=== PATIENT | female | born 1935 | race Caucasian/White ===

== ENCOUNTER 2022-07-03 03:28 | Inpatient (IN) | payer MEDICARE ==
[2022-07-03] MEDS ORDERED: Magnesium 2 GM/50 ML BAG (IN WATER) ONE (04:06)
[2022-07-03] MEDS ORDERED: Furosemide 40 MG/4 ML VIAL ONE (04:06)
[2022-07-03] MEDS ORDERED: Ondansetron ODT 4 MG TAB PO PRN (04:35)
[2022-07-03] MEDS ORDERED: Dextrose 50% Abboject 50 ML SYRINGE SLOW IVP PRN (04:35)
[2022-07-03] MEDS ORDERED: Ondansetron PF 4 MG/2 ML Vial IVP PRN (04:35)
[2022-07-03] MEDS ORDERED: Acetaminophen 325 MG TAB PO PRN (04:35)
[2022-07-03] MEDS ORDERED: Dextrose 5% in Water 1,000 ML IV PRN (04:35)
[2022-07-03] MEDS ORDERED: HumaLOG 300 UNITS/3 ML VIAL SC PRN (04:35)
[2022-07-03] MEDS ORDERED: Acetaminophen 650 MG Suppository PR PRN (04:35)
[2022-07-03 07:34] LABS: Troponin I Less than 0.010 ng/mL (< 0.028)
[2022-07-03] MEDS: Azithromycin 500 MG in Sodium Chloride 0.9% 250 ML 250 ML IVPB SCH (10:27)
[2022-07-03] MEDS: methylPREDNISolone Sod Succ 40 MG VIAL IVP SCH (10:28)
[2022-07-03] MEDS ORDERED: NIFEdipine XL 60 MG TAB PO SCH (13:30)
[2022-07-03] MEDS: HYDROcodone/Acetaminophen 10/325 mg Tablet PO PRN (15:30)
[2022-07-03] MEDS: Ferrous Sulfate 325 MG TAB PO SCH (17:22)
[2022-07-03] MEDS: HumaLOG 300 UNITS/3 ML VIAL SC PRN (17:22)
[2022-07-03] MEDS: Ezetimibe 10 MG TAB PO SCH (20:28)
[2022-07-03] MEDS: Aspirin Chewable 81 MG TAB PO SCH (20:28)
[2022-07-03] MEDS: Atorvastatin Calcium 20 MG TAB PO SCH (20:28)
[2022-07-03] MEDS: Docusate 100 MG CAP PO SCH (20:29)
[2022-07-04] MEDS: HYDROcodone/Acetaminophen 10/325 mg Tablet PO PRN ×3 (00:10→17:37)
[2022-07-04] MEDS: tiZANidine HCl 4 MG TAB PO SCH ×2 (00:16→21:36)
[2022-07-04 02:47] VITALS: BMI 24.1
[2022-07-04 06:11] LABS: Anion Gap 10 mmol/L (10-20); BUN (Urea Nitrogen) 29 mg/dL (9.8-20.1); Calc. Creatinine Clearance 41 mL/min (70-130); Calcium 8.7 mg/dL (7.8-10.44); Carbon Dioxide 28 mmol/L (23-31); Chloride 106 mmol/L (98-107); Estimated GFR 64; Glucose 105 mg/dL (83-110); Potassium 3.5 mmol/L (3.5-5.1); Sodium 140 mmol/L (136-145)
[2022-07-04] MEDS: Azithromycin 500 MG in Sodium Chloride 0.9% 250 ML 250 ML IVPB SCH (06:23)
[2022-07-04] MEDS: Levothyroxine Sodium 112 MCG TAB PO SCH (06:25)
[2022-07-04 06:57] LABS: Mean Corpuscular HGB CONC 31.4 g/dL (32.0-36.0); Mean Corpuscular Hemoglobin 31.8 pg (27.0-31.0); Mean Platelet Volume 6.9 fL (7.4-10.4); Platelet Count 202 10x3/uL (130-400); RBC Distribution Width 12.1 % (11.5-14.5); Red Blood Cell (RBC) Count 3.47 mill/uL (4.20-5.40)
[2022-07-04] MEDS: Clopidogrel Bisulfate 75 MG TAB PO SCH (08:19)
[2022-07-04] MEDS: NIFEdipine XL 60 MG TAB PO SCH (08:19)
[2022-07-04] MEDS: Ferrous Sulfate 325 MG TAB PO SCH ×2 (08:19→17:36)
[2022-07-04] MEDS: methylPREDNISolone Sod Succ 40 MG VIAL IVP SCH (08:21)
[2022-07-04] MEDS ORDERED: Enoxaparin Sodium 30 MG/0.3 ML SYRINGE SC SCH (09:00)
[2022-07-04] MEDS ORDERED: Non-Formulary Item 1 EACH (Levothyroxine Sodium [Levothyroxine] 100 MCG Capsule) PO SCH (09:00)
[2022-07-04 09:51] LABS: Band 2 % (5-11); Hypochromia SLIGHT = 6-15 cells (100X) (0-5/hpf); Lymphocytes 38 % (21-51); MDiff Complete? YES; Macrocytosis SLIGHT = 6-15 cells (100X) (0-5/hpf); Monocytes 13 % (0-10); Neutrophil 46 % (42-75); Ovalocytes SLIGHT = 2-5 cells (100X) (0-1/hpf); Platelet Morphology Comment Appears Adequate; Polychromasia SLIGHT = 2-3 cells (100X) (0-2/hpf); Reactive Lymphocytes 1 % (0-10)
[2022-07-04] MEDS: HumaLOG 300 UNITS/3 ML VIAL SC PRN (17:36)
[2022-07-04 17:59] LABS: Sodium, Urine 50 mmol/L (Not Available); Urea Nitrogen, Random Urine 1035 mg/dl
[2022-07-04] MEDS: Aspirin Chewable 81 MG TAB PO SCH (21:33)
[2022-07-04] MEDS: Atorvastatin Calcium 20 MG TAB PO SCH (21:33)
[2022-07-04] MEDS: Ezetimibe 10 MG TAB PO SCH (21:33)
[2022-07-04] MEDS: Docusate 100 MG CAP PO SCH (21:33)
[2022-07-05] MEDS: HYDROcodone/Acetaminophen 10/325 mg Tablet PO PRN ×2 (01:58→17:22)
[2022-07-05 05:14] LABS: ALT (SGPT) 9 U/L (8-55); AST (SGOT) 24 U/L (5-34); Albumin 3.6 g/dL (3.4-4.8); Alkaline Phosphatase 57 U/L (40-110); Anion Gap 12 mmol/L (10-20); BUN (Urea Nitrogen) 28 mg/dL (9.8-20.1); Bilirubin, Total 0.2 mg/dL (0.2-1.2); Calc. Creatinine Clearance 42 mL/min (70-130); Calcium 8.8 mg/dL (7.8-10.44); Carbon Dioxide 25 mmol/L (23-31); Chloride 106 mmol/L (98-107); Estimated GFR 65; Globulin 3.6 g/dL (2.4-3.5); Glucose 97 mg/dL (83-110); Magnesium 1.9 mg/dL (1.6-2.6); Phosphorus 3.2 mg/dL (2.3-4.7); Potassium 3.7 mmol/L (3.5-5.1); Protein, Total 7.2 g/dL (5.8-8.1); Sodium 139 mmol/L (136-145)
[2022-07-05 05:19] LABS: Band 3 % (5-11); Hemoglobin 10.9 g/dL (12.0-16.0); Lymphocytes 39 % (21-51); MDiff Complete? YES; Mean Corpuscular HGB CONC 32.8 g/dL (32.0-36.0); Mean Corpuscular Hemoglobin 32.6 pg (27.0-31.0); Mean Corpuscular Volume 99.4 fl (78.0-98.0); Mean Platelet Volume 6.7 fL (7.4-10.4); Monocytes 15 % (0-10); Neutrophil 43 % (42-75); Platelet Count 200 10x3/uL (130-400); RBC Distribution Width 12.2 % (11.5-14.5); Red Blood Cell (RBC) Count 3.34 mill/uL (4.20-5.40); White Blood Cell (WBC) Count 4.7 10x3/uL (4.8-10.8)
[2022-07-05] MEDS ORDERED: Levothyroxine Sodium 100 MCG TAB PO SCH (06:00)
[2022-07-05] MEDS: Azithromycin 500 MG in Sodium Chloride 0.9% 250 ML 250 ML IVPB SCH (06:14)
[2022-07-05] MEDS: Cyanocobalamin (Vitamin B-12) 1,000 MCG TAB PO SCH (09:11)
[2022-07-05] MEDS: Clopidogrel Bisulfate 75 MG TAB PO SCH (09:11)
[2022-07-05] MEDS: methylPREDNISolone Sod Succ 40 MG VIAL IVP SCH (09:11)
[2022-07-05] MEDS: Folic Acid 1 MG TAB PO SCH (09:11)
[2022-07-05] MEDS: NIFEdipine XL 60 MG TAB PO SCH (09:11)
[2022-07-05] MEDS: Enoxaparin Sodium 40 MG/0.4 ML SYRINGE SC SCH (09:11)
[2022-07-05] MEDS: Ferrous Sulfate 325 MG TAB PO SCH ×2 (09:11→17:22)
[2022-07-05] MEDS: HumaLOG 300 UNITS/3 ML VIAL SC PRN (17:43)
[2022-07-05] MEDS: Aspirin Chewable 81 MG TAB PO SCH (21:01)
[2022-07-05] MEDS: Atorvastatin Calcium 20 MG TAB PO SCH (21:01)
[2022-07-05] MEDS: Ezetimibe 10 MG TAB PO SCH (21:01)
[2022-07-05] MEDS: tiZANidine HCl 4 MG TAB PO SCH (21:02)
[2022-07-05] MEDS: Docusate 100 MG CAP PO SCH (21:02)
[2022-07-06] MEDS: HYDROcodone/Acetaminophen 10/325 mg Tablet PO PRN ×3 (01:52→19:57)
[2022-07-06] MEDS ORDERED: Benzonatate 100 MG CAP PO PRN (02:08)
[2022-07-06] MEDS: GUAIFENESIN SF SOLN 200 MG/10 ML UDCUP PO PRN ×3 (02:17→11:49)
[2022-07-06 05:05] LABS: ALT (SGPT) 10 U/L (8-55); AST (SGOT) 25 U/L (5-34); Albumin 3.5 g/dL (3.4-4.8); Alkaline Phosphatase 57 U/L (40-110); Anion Gap 10 mmol/L (10-20); BUN (Urea Nitrogen) 26 mg/dL (9.8-20.1); Bilirubin, Total 0.3 mg/dL (0.2-1.2); Calc. Creatinine Clearance 43 mL/min (70-130); Carbon Dioxide 27 mmol/L (23-31); Chloride 104 mmol/L (98-107); Estimated GFR 66; Globulin 3.5 g/dL (2.4-3.5); Glucose 98 mg/dL (83-110); Sodium 137 mmol/L (136-145)
[2022-07-06] MEDS: Azithromycin 500 MG in Sodium Chloride 0.9% 250 ML 250 ML IVPB SCH (05:40)
[2022-07-06] MEDS: Levothyroxine Sodium 112 MCG TAB PO SCH (05:40)
[2022-07-06 05:52] LABS: Band 2 % (5-11); Hemoglobin 10.8 g/dL (12.0-16.0); Hypochromia SLIGHT = 6-15 cells (100X) (0-5/hpf); Lymphocytes 50 % (21-51); MDiff Complete? YES; Mean Corpuscular Hemoglobin 32.5 pg (27.0-31.0); Mean Corpuscular Volume 98.5 fl (78.0-98.0); Mean Platelet Volume 6.9 fL (7.4-10.4); Monocytes 8 % (0-10); Neutrophil 35 % (42-75); Platelet Count 190 10x3/uL (130-400); Platelet Morphology Comment Appears Adequate; RBC Distribution Width 11.9 % (11.5-14.5); Reactive Lymphocytes 5 % (0-10); Red Blood Cell (RBC) Count 3.33 mill/uL (4.20-5.40); White Blood Cell (WBC) Count 3.9 10x3/uL (4.8-10.8)
[2022-07-06] MEDS: Enoxaparin Sodium 40 MG/0.4 ML SYRINGE SC SCH (09:25)
[2022-07-06] MEDS: NIFEdipine XL 60 MG TAB PO SCH (09:25)
[2022-07-06] MEDS: Cyanocobalamin (Vitamin B-12) 1,000 MCG TAB PO SCH (09:25)
[2022-07-06] MEDS: Clopidogrel Bisulfate 75 MG TAB PO SCH (09:25)
[2022-07-06] MEDS: methylPREDNISolone Sod Succ 40 MG VIAL IVP SCH (09:25)
[2022-07-06] MEDS: Folic Acid 1 MG TAB PO SCH (09:25)
[2022-07-06] MEDS: Ferrous Sulfate 325 MG TAB PO SCH ×2 (09:25→15:48)
[2022-07-06] MEDS ORDERED: Calcium Carbonate 600 MG + Vit D TAB PO SCH (16:45)
[2022-07-06] MEDS: HumaLOG 300 UNITS/3 ML VIAL SC PRN (16:59)
[2022-07-06] MEDS: metFORMIN 500 MG TAB PO SCH (16:59)
[2022-07-06] MEDS: tiZANidine HCl 4 MG TAB PO SCH ×2 (21:23→21:28)
[2022-07-06] MEDS: Aspirin Chewable 81 MG TAB PO SCH (21:24)
[2022-07-06] MEDS: Ezetimibe 10 MG TAB PO SCH (21:24)
[2022-07-06] MEDS: Atorvastatin Calcium 20 MG TAB PO SCH (21:24)
[2022-07-06] MEDS: Docusate 100 MG CAP PO SCH (21:27)
[2022-07-07] MEDS: HYDROcodone/Acetaminophen 10/325 mg Tablet PO PRN ×3 (04:41→21:11)
[2022-07-07] MEDS: Levothyroxine Sodium 112 MCG TAB PO SCH (05:43)
[2022-07-07] MEDS: methylPREDNISolone Sod Succ 40 MG VIAL IVP SCH (09:20)
[2022-07-07] MEDS: Cyanocobalamin (Vitamin B-12) 1,000 MCG TAB PO SCH (09:20)
[2022-07-07] MEDS: Ferrous Sulfate 325 MG TAB PO SCH ×2 (09:20→16:49)
[2022-07-07] MEDS: NIFEdipine XL 60 MG TAB PO SCH (09:20)
[2022-07-07] MEDS: metFORMIN 500 MG TAB PO SCH ×2 (09:20→16:49)
[2022-07-07] MEDS: Folic Acid 1 MG TAB PO SCH (09:20)
[2022-07-07] MEDS: Enoxaparin Sodium 40 MG/0.4 ML SYRINGE SC SCH (09:20)
[2022-07-07] MEDS: Fish Oil 1,000 MG CAP PO SCH (09:20)
[2022-07-07] MEDS: Clopidogrel Bisulfate 75 MG TAB PO SCH (09:20)
[2022-07-07] MEDS: HumaLOG 300 UNITS/3 ML VIAL SC PRN (16:52)
[2022-07-07] MEDS: Atorvastatin Calcium 20 MG TAB PO SCH (21:11)
[2022-07-07] MEDS: GUAIFENESIN SF SOLN 200 MG/10 ML UDCUP PO PRN (21:11)
[2022-07-07] MEDS: Aspirin Chewable 81 MG TAB PO SCH (21:11)
[2022-07-07] MEDS: Ezetimibe 10 MG TAB PO SCH (21:11)
[2022-07-07] MEDS: Docusate 100 MG CAP PO SCH (21:11)
[2022-07-07] MEDS: tiZANidine HCl 4 MG TAB PO SCH (21:14)
[2022-07-08] MEDS: HYDROcodone/Acetaminophen 10/325 mg Tablet PO PRN (05:20)
[2022-07-08] MEDS: Levothyroxine Sodium 112 MCG TAB PO SCH (05:20)
[2022-07-08] MEDS: Clopidogrel Bisulfate 75 MG TAB PO SCH (08:49)
[2022-07-08] MEDS: Enoxaparin Sodium 40 MG/0.4 ML SYRINGE SC SCH (08:49)
[2022-07-08] MEDS: methylPREDNISolone Sod Succ 40 MG VIAL IVP SCH (08:49)
[2022-07-08] MEDS: Fish Oil 1,000 MG CAP PO SCH (08:49)
[2022-07-08] MEDS: Ferrous Sulfate 325 MG TAB PO SCH ×2 (08:49→16:41)
[2022-07-08] MEDS: NIFEdipine XL 60 MG TAB PO SCH (08:50)
[2022-07-08] MEDS: Cyanocobalamin (Vitamin B-12) 1,000 MCG TAB PO SCH (08:50)
[2022-07-08] MEDS: Folic Acid 1 MG TAB PO SCH (08:50)
[2022-07-08] MEDS: metFORMIN 500 MG TAB PO SCH ×2 (08:50→16:41)
[2022-07-08 12:09] VITALS: BP 139/72; TEMP 98.6
== END 2022-07-08 17:50 | disposition home or self-care (01) | DRG 291 ==
LOC: ERS 03:28 → 2NO 04:24
PROVIDERS: ADMIT Student in an Organized Health Care Education/Training Program; ATTEND Internal Medicine
DX: I11.0 Hypertensive heart disease with heart failure (principal); I50.33 Acute on chronic diastolic (congestive) heart failure; J96.01 Acute respiratory failure with hypoxia; J44.1 Chronic obstructive pulmonary disease with (acute) exacerbation; N17.9 Acute kidney failure, unspecified; Z20.822 Contact with and (suspected) exposure to COVID-19; E11.9 Type 2 diabetes mellitus without complications; E03.9 Hypothyroidism, unspecified; E78.5 Hyperlipidemia, unspecified; E66.9 Obesity, unspecified; D64.9 Anemia, unspecified; I25.10 Atherosclerotic heart disease of native coronary artery without angina pectoris; Z68.24 Body mass index [BMI] 24.0-24.9, adult; Z88.2 Allergy status to sulfonamides; Z88.5 Allergy status to narcotic agent; Z88.6 Allergy status to analgesic agent; Z88.8 Allergy status to other drugs, medicaments and biological substances; Z79.890 Hormone replacement therapy; Z79.82 Long term (current) use of aspirin; Z79.84 Long term (current) use of oral hypoglycemic drugs; Z79.899 Other long term (current) drug therapy
CPT/HCPCS: 36415; 36416; 76536; 78451; 80048; 80053; 83735; 83880; 84100; 84145; 84300; 84484; 84540; 85025; 93306; 93970; 94640; 96365; 96375; A9540; J0456; J1650; J1815; J1940; J2920; J3475; J7050; J7620